=== PATIENT | female | born 1950 | race Caucasian/White ===

== ENCOUNTER → 2016-11-23 | Outpatient (CLI) | payer MEDICARE, OTHER ==
[~2016-11-23] MED LIST: AC325T PO; ALPR.25T PO; FLC1T PO; GBPN100C PO; LEFL10TA16 PO; MECL-105 PO; METH10TA5 PO; METH2.5T PO; METH5TAB5 PO; METO-270 PO; METO-272 PO; MULT-1026 PO; ONDAN4ODT PO; PRED10TA PO; PROP40TA5 PO; PROP60TA17 PO; SMV10T PO; WARF4TAB3 PO
--- NOTE | 2016-11-23 12:13 | Diagnostic Imaging Report ---
PROCEDURE: US Thyroid. TECHNIQUE: Multiple real-time grayscale images were obtained of the thyroid in various projections. INDICATION: Hyperthyroidism. History of thyroid nodules. COMPARISON: 11/19/2016 FINDINGS: Right lobe remains enlarged and measures 6 x 2.7 x 2.8 cm. Multiple heterogeneous nodules are again identified scattered throughout the right thyroid lobe. Reference nodule measures approximately 2.6 x 2.1 x 2.5 cm. This is in comparison to 2.7 x 2.1 x 2.2 cm previously. Multiple bulky calcifications are also noted within the right lobe. There are punctate microcalcifications identified more superiorly. There is suggestion of circumscribed nodule associated with these microcalcifications measuring approximately 2 x 1.6 x 1.5 cm. Previously, this nodule measured 1.7 x 1.4 x 1.3 cm. Left lobe is also enlarged and measures 6.4 x 2.6 x 3.2 cm. Multiple nodules are also again identified on the left. The largest is solid cystic in nature and measures 3.2 x 2 cm. This is in comparison to 3.8 x 2.8 cm previously. No microcalcifications are seen on the left. IMPRESSION: 1. Multiple bilateral thyroid nodules as described above. The two reference nodules on the right meet criteria for ultrasound-guided fine-needle aspiration. Tissue sampling is recommended. 2. Reference nodule on the left also meets criteria for fine needle aspiration, although it has decreased in size when compared to prior exam. Dictated by: Dictated on workstation # [id number]
== END ==
LOC: RAD 09:53
PROVIDERS: ATTEND Family Medicine
DX: E05.90 Thyrotoxicosis, unspecified without thyrotoxic crisis or storm (principal); E04.1 Nontoxic single thyroid nodule
CPT/HCPCS: 76536

== ENCOUNTER 2017-01-01 13:17 | Emergency (ER) | payer MEDICARE, OTHER ==
[~2017-01-01] VITALS: Ht 170.2 cm; Wt 97.0 kg
[2017-01-01] MEDS ORDERED: SODIUM CHLORIDE FLUSH 10 ML SYR IV PRN (13:45)
[2017-01-01] MEDS ORDERED: SODIUM CHLORIDE FLUSH 3 ML SYR IV PRN (13:45)
[2017-01-01 14:08] LABS: BASOPHILS % (AUTO) 1 % (0-2); EOSINOPHILS # (AUTO) 0.1 10^3uL; EOSINOPHILS % (AUTO) 1 % (0-4); LYMPHOCYTES # (AUTO) 1.6 X10^3; MEAN CORPUSCULAR HEMOGLOBIN 29.8 PG (26.0-34.0); MEAN CORPUSCULAR HGB CONC 32.8 g/dL (31.0-37.0); MEAN CORPUSCULAR VOLUME 91 FL (80-100); MEAN PLATELET VOLUME 10.8 FL (6.0-9.5); MONOCYTES # (AUTO) 1.1 X10^3; MONOCYTES % (AUTO) 11 % (3-11); NEUTROPHILS # (AUTO) 7.1 X10^3; NEUTROPHILS % (AUTO) 71 % (51-67); PLATELET COUNT 275 10^3uL (150-450); WHITE BLOOD COUNT 9.98 10^3uL (4.0-11.0)
--- NOTE | 2017-01-01 14:22 | Diagnostic Imaging Report ---
CHEST 1 VIEW, AP/PA ONLY* Indication: Syncope Comparison: 03/29/2016 Findings: No focal airspace disease in the visualized lungs. Please note that the posterior lower lobes are poorly evaluated by portable radiography. No pleural effusion or pneumothorax. Normal cardiomediastinal silhouette. Impression: No acute cardiopulmonary process by portable radiography. Dictated by: Dictated on workstation # [id number]
[2017-01-01 14:28] LABS: ALBUMIN 3.9 g/dL (3.4-5.0); ALKALINE PHOSPHATASE 71 U/L (38-126); ANION GAP 11.7 MEQ/L (3-15); BUN/CREATININE RATIO 26 (10-20); TOTAL PROTEIN 6.4 g/dL (6.4-8.5)
[2017-01-01 15:13] LABS: BILIRUBIN,URINE Negative (Negative); CLARITY,URINE Cloudy; COLOR,URINE Yellow; GLUCOSE, URINE (UA) Negative (Negative); LEUKOCYTE ESTERASE ,URINE 1+ (Negative); PH,URINE 5.5 (5.0 - 8.0); UROBILINOGEN,URINE 0.2 mg/dL (0.2-1.0)
[2017-01-01 15:16] LABS: URINE CENTRIFUGED VOLUME 10 mL
[2017-01-01] MEDS ORDERED: METO75TA PO (16:17)
[2017-01-01] MEDS ORDERED: METH10TA5 PO (16:20)
[2017-01-01 16:21] VITALS: BP 136/64
== END 2017-01-01 16:20 | disposition left against medical advice (07) ==
LOC: EDUNIT# 13:17 → ED 13:19
DX: R55 Syncope and collapse (principal); F17.210 Nicotine dependence, cigarettes, uncomplicated; I10 Essential (primary) hypertension; R82.99 Other abnormal findings in urine
CPT/HCPCS: 36415; 71010; 80053; 81003; 81015; 84439; 84443; 84484; 85025; 85652; 87088; 93005; 93010; 99284